=== PATIENT | male | born 1930 | race Caucasian/White ===

== ENCOUNTER 2016-12-09 11:19 | Emergency (ER) | payer OTHER ==
[~2016-12-09] VITALS: Ht 165.1 cm; Wt 81.6 kg
[2016-12-09 11:19] VITALS: BP_SYST 97
[2016-12-09] MEDS ORDERED: NACL 0.9% 1,000 ML IV ONE ×4 (11:30→16:00)
[2016-12-09] MEDS ORDERED: HYDR-4037 PO (11:45)
[2016-12-09] MEDS ORDERED: FINA5TAB3 PO (11:45)
[2016-12-09] MEDS ORDERED: HYT1 PO (11:45)
[2016-12-09] MEDS ORDERED: ALLO100T PO (11:45)
[2016-12-09] MEDS ORDERED: LIP40 PO (11:45)
[2016-12-09] MEDS ORDERED: BENA20TA2 PO (11:45)
[2016-12-09] MEDS ORDERED: POTA-118 PO (11:45)
[2016-12-09] MEDS ORDERED: AMLO5TAB4 PO (11:45)
[2016-12-09] MEDS ORDERED: APIX2.5T PO (11:45)
[2016-12-09] MEDS ORDERED: ALPR0.5T96 PO (11:45)
[2016-12-09] MEDS ORDERED: PRO40 PO (11:45)
[2016-12-09] MEDS ORDERED: GLIP-195 PO (11:45)
[2016-12-09 11:51] LABS: BASOPHILS # (AUTO) 0.1 K/uL (0.0-0.2); BASOPHILS % (AUTO) 0.8 % (0.0-2.0); EOSINOPHILS # (AUTO) 0.1 K/uL (0.0-0.4); EOSINOPHILS % (AUTO) 0.8 % (0.0-4.0); HEMATOCRIT 34.7 % (36-54); HEMOGLOBIN 11.2 g/dL (14.0-18.0); LYMPHOCYTES # (AUTO) 1.6 K/uL (1.0-5.5); LYMPHOCYTES % (AUTO) 19.3 % (20.5-51.5); MEAN CORPUSCULAR HEMOGLOBIN 29 pg (27-31); MEAN CORPUSCULAR HGB CONC 32 % (32-36); MEAN CORPUSCULAR VOLUME 90 fL (79.0-98.0); MONOCYTES # (AUTO) 0.7 K/uL (0.0-1.0); MONOCYTES % (AUTO) 7.9 % (1.7-9.3); NEUTROPHILS % (AUTO) 71.2 % (40.0-70.0); PLATELET COUNT (AUTO) 338 K/uL (130-430); RED BLOOD CELL COUNT(AUTO) 3.87 MIL/uL (4.2-6.2); RED CELL DISTRIBUTION WIDTH 16.5 % (9.0-15.0); WHITE BLOOD COUNT (AUTO) 8.5 K/uL (4.8-10.8)
[2016-12-09 12:04] LABS: ANION GAP 11 (5-15); CALCIUM 9.5 mg/dL (8.4-11.0); CHLORIDE 99 mmol/L (98-107); CREATININE 2.21 mg/dL (0.55-1.30); GLUCOSE 183 mg/dL (70-99); POTASSIUM 5.4 mmol/L (3.5-5.1); SODIUM SERUM 134 mmol/L (136-145); UREA NITROGEN, BLOOD 49 mg/dL (8-21)
[2016-12-09 12:09] LABS: INR 1.1 (0.80-1.20); PROTHROMBIN TIME 12.1 SECS (9.5-12.5)
[2016-12-09 12:19] LABS: ALANINE AMINOTRANSFERASE 33 U/L (12-78); ALBUMIN 3.3 g/dL (3.4-4.8); ASPARTATE AMINOTRANSFERASE 32 U/L (10-37); THYROID STIMULATING HORMONE 4.95 uIu/mL (0.36-3.74); TOTAL BILIRUBIN 0.6 mg/dL (0.0-1.0)
[2016-12-09] MEDS ORDERED: SODIUM POLYSTYRENE SULFONATE 15 GM/60 ML UDBTL PO ONE (12:45)
[2016-12-09] MEDS ORDERED: DEXTROSE 50% JECT 50 ML DISP.SYRIN IVP ONE (12:45)
[2016-12-09] MEDS ORDERED: INSULIN REGULAR, HUMAN 10 UNITS/0.1 ML INJ IVP ONE (12:45)
[2016-12-09] MEDS ORDERED: ALBUTEROL SULFATE 0.083% 2.5 MG/3 ML VIAL.NEB INH ONE (12:45)
[2016-12-09 14:08] LABS: ANION GAP 9 (5-15); CALCIUM 8.2 mg/dL (8.4-11.0); CHLORIDE 105 mmol/L (98-107); CREATININE 2.06 mg/dL (0.55-1.30); GLUCOSE 242 mg/dL (70-99); POTASSIUM 4.6 mmol/L (3.5-5.1); SODIUM SERUM 135 mmol/L (136-145); UREA NITROGEN, BLOOD 46 mg/dL (8-21)
[2016-12-10 03:51] VITALS: BP_SYST 110
== END 2016-12-09 21:30 | disposition short-term general hospital (02) ==
LOC: SED 11:19
DX: E87.5 Hyperkalemia (principal); E86.0 Dehydration; E03.9 Hypothyroidism, unspecified; N17.9 Acute kidney failure, unspecified; I48.91 Unspecified atrial fibrillation; D64.9 Anemia, unspecified; R34 Anuria and oliguria; R51 Headache
CPT/HCPCS: 36415; 70450; 71010; 80048; 80053; 83605; 83880; 84439; 84443; 84484; 85025; 85610; 85730; 87040; 93005; 94640; 96361; 96372; 96374; 99285; J1815; J7030